=== PATIENT | male | born 1965 | race African-American/Black ===

== ENCOUNTER 2024-07-23 16:32 | Emergency (ER) | payer SELFPAY ==
[2024-07-23] MEDS ORDERED: Ketorolac Tromethamine 30 MG (1 mL) VIAL ONE (17:15)
== END 2024-07-23 17:49 | disposition home or self-care (01) ==
LOC: CSHERS 16:32
DX: M25.561 Pain in right knee (principal)
CPT/HCPCS: 96372; J1885

== ENCOUNTER 2024-10-31 20:55 | Emergency (ER) | payer SELFPAY ==
[2024-10-31] MEDS ORDERED: Morphine 4 MG/ML VIAL ONE (22:13)
[2024-10-31] MEDS ORDERED: Nitroglycerin 0.4 MG TAB 1 EACH ONE (22:14)
[2024-10-31 22:18] LABS: #Basophils 0.04 10x3/uL (0.0-0.2); #Eosinophils 0.13 10x3/uL (0.0-0.5); #Monocytes 0.55 10x3/uL (0.0-1.1); %Basophils 0.4 % (0.0-2.0); %Eosinophils 1.4 % (0.0-6.0); %Lymphocytes 22.5 % (18.0-47.0); %Monocytes 6.1 % (0.0-10.0); %Neutrophils 69.3 % (40.0-75.0); Hematocrit 40.2 % (38.8-50.0); Hemoglobin 13.7 g/dL (13.5-17.5); Mean Corpuscular HGB CONC 34.1 g/dL (32.0-36.0); Mean Corpuscular Hemoglobin 30.1 pg (27.0-33.0); Mean Corpuscular Volume 88.4 fL (81.2-95.1); Mean Platelet Volume 9.8 fL (7.4-10.4); Platelet Count 427 10x3/uL (150-450); RBC Distribution Width 11.3 % (11.5-14.5); Red Blood Cell (RBC) Count 4.55 10x6/uL (4.32-5.72)
[2024-10-31 22:34] LABS: PTT 38.4 sec (22.0-33.0); Prothrombin Time 10.9 sec (9.5-12.1)
[2024-10-31 22:39] LABS: ALT (SGPT) 34 U/L (8-55); AST (SGOT) 25 U/L (5-34); Albumin 3.8 g/dL (3.5-5.0); Alkaline Phosphatase 78 U/L (40-110); Anion Gap 14 mmol/L (10-20); BUN (Urea Nitrogen) 11 mg/dL (8.4-25.7); Bilirubin, Total 0.5 mg/dL (0.2-1.2); Calc. Creatinine Clearance 0 mL/min (70-130); Calcium 9.8 mg/dL (7.8-10.44); Carbon Dioxide 23 mmol/L (22-29); Chloride 104 mmol/L (98-107); Estimated GFR 71; Globulin 4.1 g/dL (2.4-3.5); Glucose 118 mg/dL (70-105); Lipase 19 U/L (8-78); Potassium 3.9 mmol/L (3.5-5.1); Protein, Total 7.9 g/dL (6.0-8.3); Sodium 137 mmol/L (136-145)
[2024-10-31 22:47] LABS: Troponin I Less than 0.010 ng/mL (< 0.028)
== END 2024-11-01 00:45 | disposition home or self-care (01) ==
LOC: CSHERS 20:55
DX: J18.9 Pneumonia, unspecified organism (principal); R07.82 Intercostal pain; I10 Essential (primary) hypertension; Z55.0 Illiteracy and low-level literacy
CPT/HCPCS: 71045; 71275; 74174; 80053; 83690; 83735; 83880; 84443; 84484; 85025; 85610; 85730; 93005; 96374; J2272

== ENCOUNTER 2025-09-17 11:44 | Emergency (ER) | payer SELFPAY ==
[2025-09-17] MEDS ORDERED: Acetaminophen 500 MG TAB ONE (13:41)
[2025-09-17] MEDS ORDERED: Ibuprofen 800 MG TAB ONE (13:41)
== END 2025-09-17 15:05 | disposition home or self-care (01) ==
LOC: CSHERS 11:44
DX: M79.601 Pain in right arm (principal); M25.511 Pain in right shoulder; I10 Essential (primary) hypertension; W19.XXXA Unspecified fall, initial encounter; Y93.89 Activity, other specified
CPT/HCPCS: 93005; 99283